=== PATIENT | female | born 1945 | race Caucasian/White ===

== ENCOUNTER 2018-04-08 22:08 | Emergency (ER) | payer MEDICARE ==
[2018-04-08 22:33] VITALS: TEMP 98
--- NOTE | 2018-04-08 23:12 | C.PDOC ---
History Of Present Illness 73 year old female with PMhx of depression and anxiety is brought to the ED for evaluation. Patient reports her recently left for [place] due to family emergency and patient was left under the care of her neighbor. Patient reports her neighbor backed out of their agreement which caused the patient to become angry and voice suicidal ideations. 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 As per her PMD Dr. Vernon Cervantes states she usually states she will jump of a building. On the ED patient denies any SI/HI, hallucinations, CP, SOB. Time Seen by Provider: 04/08/18 22:33 Chief Complaint (Nursing): Psychiatric Evaluation History Per: Patient History/Exam Limitations: no limitations Onset/Duration Of Symptoms: Hrs (1) Current Symptoms Are (Timing): Still Present Suicide/Self Injury Attempted (Context): None Associated Symptoms: Anxiety, Depression. denies: Suicidal Thoughts, Suicidal Plan Involuntary Hold By: None Recent travel outside of the [place]: No Additional History Per: Patient, EMS Past Medical History Reviewed: Historical Data, Nursing Documentation, Vital Signs Vital Signs: Last Vital Signs Temp 98 F 04/08/18 22:25 Pulse 80 04/08/18 23:49 Resp 14 04/08/18 23:49 BP 130/80 04/08/18 23:49 Pulse Ox 97 04/08/18 23:49 - Medical History PMH: Anxiety, COPD, Depression Surgical History: Appendectomy, Tonsillectomy Family History: States: Unknown Family Hx - Social History Hx Alcohol Use: No Hx Substance Use: No - Immunization History Hx Tetanus Toxoid Vaccination: Yes Hx Influenza Vaccination: Yes Hx Pneumococcal Vaccination: Yes Review Of Systems Constitutional: Negative for: Fever, Chills Cardiovascular: Negative for: Chest Pain, Palpitations Respiratory: Negative for: Shortness of Breath Gastrointestinal: Negative for: Nausea, Vomiting Skin: Negative for: Rash Psych: Positive for: Anxiety, Depression, Suicidal ideation Physical Exam - Physical Exam Appears: Non-toxic, Other (anxious, inability to seat still) Skin: Normal Color, Warm, Dry Head: Atraumatic, Normacephalic Eye(s): bilateral: Normal Inspection Oral Mucosa: Moist Neck: Normal ROM, Supple Chest: Symmetrical Cardiovascular: Rhythm Regular Respiratory: Normal Breath Sounds, No Rales, No Rhonchi, No Wheezing Gastrointestinal/Abdominal: Soft, No Tenderness, No Guarding, No Rebound Extremity: Normal ROM, No Tenderness, No Swelling Neurological/Psych: Oriented x3, Normal Speech Gait: Steady ED Course And Treatment O2 Sat by Pulse Oximetry: 96 (ON RA) Pulse Ox Interpretation: Normal Medical Decision Making Medical Decision Making: Impression: anxiety exacerbation Plan: * spoke with Dr. Vernon Shultz patients psychiatrist who does not feel there is need for medical tretament at this time. Patient will follow up and see patient at the office. Disposition - Disposition Referrals: Vernon Cervantes MD [Staff Provider] - Disposition: HOME/ ROUTINE Disposition Time: 23:10 Condition: FAIR Forms: [employer] (Lithuanian) Print Language: KOREAN - Clinical Impression Clinical Impression: Anxiety - Scribe Statement The provider has reviewed the documentation as recorded by the Scribe Latrell Allen All medical record entries made by the Scribe were at my direction and personally dictated by me. I have reviewed the chart and agree that the record accurately reflects my personal performance of the history, physical exam, medical decision making, and the department course for this patient. I have also personally directed, reviewed, and agree with the discharge instructions and disposition.
--- NOTE | 2018-04-08 23:15 | C.PDOC ---
History Of Present Illness 73 year old female with PMhx of depression and anxiety is brought to the ED for evaluation. Patient reports her recently left for [place] due to family emergency and patient was left under the care of her neighbor. Patient reports her neighbor backed out of their agreement which caused the patient to become angry and voice suicidal ideations. 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 As per her PMD Dr. Vernon Bianchi states she usually states she will jump of a building. On the ED patient denies any SI/HI, hallucinations, CP, SOB. Time Seen by Provider: 04/08/18 22:33 Chief Complaint (Nursing): Psychiatric Evaluation History Per: Patient History/Exam Limitations: no limitations Onset/Duration Of Symptoms: Days Current Symptoms Are (Timing): Still Present Suicide/Self Injury Attempted (Context): None Modifying Factor(s): None Severity: None Associated Symptoms: Depression, Suicidal Thoughts. denies: Suicidal Plan Recent travel outside of the [place]: No Additional History Per: Patient, EMS Past Medical History Reviewed: Historical Data, Nursing Documentation, Vital Signs Vital Signs: Last Vital Signs Temp 98 F 04/08/18 22:25 Pulse 85 04/08/18 22:25 Resp 16 04/08/18 22:25 BP 148/91 H 04/08/18 22:25 Pulse Ox 96 04/08/18 22:25 - Medical History PMH: Anxiety, COPD, Depression Surgical History: Appendectomy, Tonsillectomy Family History: States: Unknown Family Hx - Social History Hx Alcohol Use: No Hx Substance Use: No - Immunization History Hx Tetanus Toxoid Vaccination: Yes Hx Influenza Vaccination: Yes Hx Pneumococcal Vaccination: Yes Review Of Systems Constitutional: Negative for: Fever, Chills Cardiovascular: Negative for: Chest Pain, Palpitations Gastrointestinal: Negative for: Nausea, Vomiting Psych: Positive for: Depression, Suicidal ideation Physical Exam - Physical Exam Appears: Non-toxic, Other (anxious, unable to sit still) Skin: Normal Color, Warm, Dry Head: Atraumatic, Normacephalic Eye(s): bilateral: Normal Inspection Oral Mucosa: Moist Neck: Normal ROM, Supple Chest: Symmetrical Cardiovascular: Rhythm Regular Respiratory: Normal Breath Sounds, No Rales, No Rhonchi, No Wheezing Gastrointestinal/Abdominal: Soft, No Tenderness, No Guarding, No Rebound Extremity: Normal ROM, No Tenderness, No Swelling Neurological/Psych: Oriented x3, Normal Speech Gait: Steady ED Course And Treatment O2 Sat by Pulse Oximetry: 96 (ON RA) Pulse Ox Interpretation: Normal Medical Decision Making Medical Decision Making: Impression: anxiety axacerbation Disposition - Disposition
[2018-04-08 23:50] VITALS: BP 130/80; PULSE 80; RESP 14
[2018-04-09 06:28] VITALS: O2SAT 96
== END 2018-04-08 23:50 | disposition home or self-care (01) ==
LOC: C.ER 22:08
DX: F41.9 Anxiety disorder, unspecified (principal); F32.9 Major depressive disorder, single episode, unspecified

== ENCOUNTER 2018-06-19 18:58 | Emergency (ER) | payer MEDICARE ==
[2018-06-19 19:46] LABS: SQUAMOUS EPITHIAL 1 /hpf (0-5); URINE BACTERIA RARE (<OCC); URINE BILIRUBIN NEGATIVE (NEGATIVE); URINE BLOOD NEGATIVE (NEGATIVE); URINE CLARITY Clear (Clear); URINE COLOR Yellow (YELLOW); URINE GLUCOSE (UA) NORMAL (Normal); URINE LEUKOCYTE ESTERASE NEG Leu/uL (Negative); URINE PROTEIN NEGATIVE (NEGATIVE)
[2018-06-19 20:44] VITALS: RESP 16
--- NOTE | 2018-06-19 20:46 | C.PDOC ---
History Of Present Illness 73-year-old female, presents to the emergency department with complaints of worsening of chronic back pain ongoing for the past few days. Patient denies any nausea/vomiting, trauma, bladder/bowel incontinence, numbness/weakness, or any other associated symptoms. No other complaints at this time. Time Seen by Provider: 06/19/18 20:41 Chief Complaint (Nursing): Back Pain History Per: Patient History/Exam Limitations: no limitations Current Symptoms Are (Timing): Still Present Past Medical History Reviewed: Historical Data, Nursing Documentation, Vital Signs Vital Signs: Last Vital Signs Temp 97.6 F 06/19/18 22:13 Pulse 81 06/19/18 22:13 Resp 16 06/19/18 20:43 BP 137/72 06/19/18 22:13 Pulse Ox 96 06/19/18 22:13 - Medical History PMH: Anxiety, COPD, Depression, Hypothyroidism Surgical History: Appendectomy, Tonsillectomy Family History: States: No Known Family Hx - Social History Hx Alcohol Use: No Hx Substance Use: No - Immunization History Hx Tetanus Toxoid Vaccination: Yes Hx Influenza Vaccination: Yes Hx Pneumococcal Vaccination: Yes Review Of Systems Except As Marked, All Systems Reviewed And Found Negative. Constitutional: Negative for: Fever Gastrointestinal: Negative for: Nausea, Vomiting, Abdominal Pain Genitourinary: Negative for: Incontinence Musculoskeletal: Positive for: Back Pain Neurological: Negative for: Weakness, Numbness Physical Exam - Physical Exam Appears: Non-toxic, No Acute Distress Skin: Warm, Dry, No Rash Head: Atraumatic, Normacephalic Eye(s): bilateral: Normal Inspection, PERRL, EOMI Nose: Normal Oral Mucosa: Moist Lips: Normal Appearing Neck: Normal ROM Cardiovascular: Rhythm Regular, No Murmur Respiratory: Normal Breath Sounds, No Accessory Muscle Use Gastrointestinal/Abdominal: Soft, No Tenderness Back: Paraspinal Tenderness (diffuse, lumbar) Extremity: Normal ROM, No Deformity Neurological/Psych: Oriented x3, Normal Speech ED Course And Treatment O2 Sat by Pulse Oximetry: 98 Pulse Ox Interpretation: Normal (RA) Progress Note: pt ambulating with cane. Pain free now Reevaluation Time: 22:19 Reassessment Condition: Improved Medical Decision Making Medical Decision Making: Plan: * CT Spine * Tylenol * UA * Reassess and Disposition Disposition Counseled Patient/Family Regarding: Studies Performed, Diagnosis, Need For Followup - Disposition Referrals: [facility] [Outside] [facility] [Outside] Disposition: HOME/ ROUTINE Disposition Time: 21:00 Condition: FAIR Instructions: Vertebral Compression Fracture (DC) Forms: [employer] (Bulgarian) - Clinical Impression Clinical Impression: Low back pain - Scribe Statement The provider has reviewed the documentation as recorded by the Scribe (Shira Salmeron) Provider Attestation: All medical record entries made by the Scribe were at my direction and personally dictated by me. I have reviewed the chart and agree that the record accurately reflects my personal performance of the history, physical exam, medical decision making, and the department course for this patient. I have also personally directed, reviewed, and agree with the discharge instructions and disposition.
[2018-06-19 22:14] VITALS: BP 137/72; PULSE 81; TEMP 97.6
[2018-06-19 22:17] VITALS: O2SAT 98
--- NOTE | 2018-06-20 12:54 | CT ---
Date of service: 06/19/2018 PROCEDURE: CT Lumbar Spine without contrast HISTORY: compression fx COMPARISON: Lumbar spine radiographs 05/23/2018. TECHNIQUE: Axial computed tomography images were obtained of the lumbar spine without the use of intravenous contrast. Coronal and sagittal reformatted images were created and reviewed. Radiation dose: Total exam DLP = 385.36 mGy-cm. This CT exam was performed using one or more of the following dose reduction techniques: Automated exposure control, adjustment of the mA and/or kV according to patient size, and/or use of iterative reconstruction technique. FINDINGS: VERTEBRAE: Normal lumbar curvature is appreciated with chronic [id number] anterior wedge compression fracture of L1 reiterated. No definitive destructive bony lesion appreciable. Mild disc height loss is seen at L1-2 and L2-3 disc heights are otherwise well preserved. Prevertebral paraspinal soft tissues appear diffusely unremarkable. No spondylolisthesis identified. DISCS/SPINAL CANAL/NEURAL FORAMINA: L1-2: Unremarkable. L2-3: Limited disc osteophyte complex encroaches the bilateral lateral recesses and inferior neural foramina without generalized central canal or neural foraminal stenosis appreciated. L3-4: Additional limited disc osteophyte complex is appreciated encroaching the lateral recesses and inferior neural foramina without significant central canal or neural foraminal stenosis appreciated on a generalized basis nevertheless. L4-5: A circumferential disc bulge combines with moderate facet joint degenerative arthropathy resulting in mild central canal stenosis concentrated at the lateral recesses bilaterally. Mild bilateral neural foraminal stenosis appreciated. L5-S1: No significant stenosis appreciated at the central canal or bilateral neural foramina. Moderate 2 severe facet joint degenerative arthropathy is identified nevertheless. OTHER FINDINGS: None. IMPRESSION: 1. Stable [id number] anterior wedge compression fracture L1. No acute fracture. No spondylolisthesis in the interval. 2. Mild central canal and bilateral neural foraminal stenosis on degenerative basis at L4-5. No gross disc herniation throughout the examination. Lesser degenerative changes identified L2-3 and L3-4. 3. Further characterization by MRI can be performed if clinically warranted.
== END 2018-06-19 22:44 | disposition home or self-care (01) ==
LOC: C.ER 18:58
DX: M54.5 Low back pain (principal); E03.9 Hypothyroidism, unspecified; J44.9 Chronic obstructive pulmonary disease, unspecified

== ENCOUNTER 2018-07-27 16:02 | Emergency (ER) | payer MEDICARE ==
[2018-07-27 16:50] VITALS: RESP 17
--- NOTE | 2018-07-27 17:36 | RAD ---
HISTORY: shortness of breath COMPARISON: No prior. TECHNIQUE: Chest PA and lateral FINDINGS: LUNGS: Increased lucencies especially within the bilateral upper lung alicea compatible with underlying emphysema. Minimal bibasilar atelectasis. Please note that chest x-ray has limited sensitivity for the detection of pulmonary masses. PLEURA: No significant pleural effusion identified. No definite pneumothorax . CARDIOVASCULAR: Heart size appears within normal limits. Atherosclerotic calcification present. OSSEOUS STRUCTURES: Osseous demineralization. Degenerative changes. VISUALIZED UPPER ABDOMEN: Unremarkable. OTHER FINDINGS: None. IMPRESSION: Emphysematous changes. Mild bibasilar atelectasis.
--- NOTE | 2018-07-27 17:56 | C.PDOC ---
History Of Present Illness 73 year old female with PMHx of COPD, anxiety, depression, hypothyroidism and chronic back pain presents to ED complaining of SOB that began yesterday at rest. States she hasn't taken her singulair in a month because it was recalled and now needs a new prescription for it. States the singulair is not prescribed by her PMD, but she gets a prescription for it from the ED. Shortness of breath improved with albuterol inhaler and nebulizer treatments at home. Denies shortness of breath currently. Denies chest pain, fever, chills, new cough, recent illness. <Dinora Hernandez P - Last Filed: 07/27/18 21:12> <Dinora Hernandez - Last Filed: 07/27/18 21:12> <Sunny Funez - Last Filed: 07/27/18 23:38> Time Seen by Provider: 07/27/18 16:26 Chief Complaint (Nursing): Anxiety Past Medical History Vital Signs: Last Vital Signs Temp 97.3 F L 07/27/18 16:08 Pulse 84 07/27/18 16:45 Resp 17 07/27/18 16:45 BP 144/73 07/27/18 16:45 Pulse Ox 99 07/27/18 17:56 <Dinora Hernandez P - Last Filed: 07/27/18 21:12> Vital Signs: Last Vital Signs Temp 97.3 F L 07/27/18 16:08 Pulse 84 07/27/18 16:45 Resp 17 07/27/18 16:45 BP 144/73 07/27/18 16:45 Pulse Ox 99 07/27/18 16:45 - Medical History PMH: Anxiety, COPD, Depression, Hypothyroidism Surgical History: Appendectomy, Tonsillectomy Family History: States: Unknown Family Hx - Social History Hx Alcohol Use: No Hx Substance Use: No - Immunization History Hx Tetanus Toxoid Vaccination: Yes Hx Influenza Vaccination: Yes Hx Pneumococcal Vaccination: Yes <Sunny Funez - Last Filed: 07/27/18 23:38> Review Of Systems Constitutional: Negative for: Fever, Chills, Sweats Cardiovascular: Negative for: Chest Pain, Palpitations, Edema Respiratory: Positive for: Shortness of Breath. Negative for: Cough, Wheezing Gastrointestinal: Negative for: Nausea, Vomiting, Abdominal Pain Musculoskeletal: Positive for: Back Pain (chronic) Psych: Positive for: Anxiety, Depression. Negative for: Suicidal ideation <Dinora Hernandez P - Last Filed: 07/27/18 21:12> Physical Exam - Physical Exam Appears: Non-toxic, No Acute Distress Skin: Normal Color, Warm, Diaphoretic Head: Atraumatic, Normacephalic Eye(s): bilateral: Normal Inspection, PERRL, EOMI Nose: No Flaring Throat: Normal Neck: Normal ROM Cardiovascular: Rhythm Regular, No Friction Rub, No Murmur Respiratory: Normal Breath Sounds, No Rales, No Rhonchi, No Wheezing Gastrointestinal/Abdominal: Bowel Sounds, Soft, No Tenderness, No Guarding, No Rebound Extremity: Normal ROM, No Tenderness, No Pedal Edema, No Calf Tenderness Pulses: Left Dorsalis Pedis: Normal, Right Dorsalis Pedis: Normal Neurological/Psych: Oriented x3, Normal Cranial Nerves (grossly), Normal Motor, Other (Patient noted to be anxious and tearful. ) <Dinora Hernandez P - Last Filed: 07/27/18 21:12> ED Course And Treatment O2 Sat by Pulse Oximetry: 99 <Sunny Funez T - Last Filed: 07/27/18 23:38> Medical Decision Making Medical Decision Making: CXR: emphysematous canges. Patient's symptoms improved with home nebulizer treatments. Pt denies shortness of breath at the time of examination. SpO2 95% on room air. Patient looks comfortable, speaking in full sentences, no accessory muscle use. Clear breath sounds on exam. Patient stable for discharge. <Dinora Hernandez P - Last Filed: 07/27/18 21:12> Medical Decision Making: Seen and examined with resident. 73 y/o F p/w dyspnea similar to previous COPD. No symptoms or shortness of breath when seen in ED and feels comfortable to go home. Instructed to return to ED for any worsening breathing or pain. <Sunny Funez T - Last Filed: 07/27/18 23:38> Disposition <Dinora Hernandez P - Last Filed: 07/27/18 21:12> - Disposition Disposition Time: 17:55 <Sunny Funez T - Last Filed: 07/27/18 23:38> - Disposition Referrals: Akua Scott MD [Staff Provider] - Disposition: HOME/ ROUTINE Condition: STABLE Instructions: Exacerbation of COPD Forms: [employer] (Citizen [place]) - Clinical Impression Clinical Impression: Shortness of breath, COPD exacerbation
[2018-07-27 18:14] VITALS: BP 149/81; PULSE 96; TEMP 97.5
[2018-07-27 23:38] VITALS: O2SAT 99
== END 2018-07-27 18:11 | disposition home or self-care (01) ==
LOC: C.ER 16:02
DX: J44.1 Chronic obstructive pulmonary disease with (acute) exacerbation (principal); R06.02 Shortness of breath

== ENCOUNTER 2019-02-13 14:08 | Outpatient (CLI) | payer MEDICARE | END 2019-02-13 14:09 | disposition home or self-care (01) | LOC: C.MAMMO 14:09 | DX: Z12.31 Encounter for screening mammogram for malignant neoplasm of breast (principal) ==